=== PATIENT | female | born 1995 | race African-American/Black ===

== ENCOUNTER 2019-08-07 14:27 | Emergency (ER) | payer OTHER ==
[~2019-08-07] VITALS: Ht 160 cm; Wt 103.7 kg
[2019-08-07 15:12] LABS: ABSOLUTE BASOPHILS 0.1 thou/uL (0.0-0.2); ABSOLUTE EOSINOPHILS 0.4 thou/uL (0.0-0.7); ABSOLUTE LYMPHOCYTES 3.4 thou/uL (0.8-5.3); ABSOLUTE MONOCYTES 0.9 thou/uL (0.0-1.2); ABSOLUTE NEUTROPHILS 6.7 thou/uL (1.6-8.1); BASOPHILS 0.8 %; EOSINOPHILS 3.3 %; HEMATOCRIT 32.4 % (37.0-47.0); HEMOGLOBIN 10.2 gm/dL (12.0-15.0); LYMPHOCYTES 29.6 %; MCH 20.9 pg (26.0-34.0); MCHC 31.4 g/dL (28.0-37.0); MCV 66.6 fL (80.0-100.0); MONOCYTES 7.9 %; MPV 9.5 fl. (7.2-11.1); NUCLEATED RBCS 0 /100WBC; PLATELET COUNT* 362 thou/uL (150-400); POLYS 58.4 %; RBC 4.87 mil/uL (4.20-5.00); RDW-CV 16.8 % (10.5-14.5); WBC 11.4 thou/uL (4.0-11.0)
[2019-08-07 15:22] LABS: CALCIUM 8.1 mg/dL (8.5-10.1); CREATININE 0.9 mg/dL (0.6-1.3)
[2019-08-07 15:26] LABS: ALBUMIN 3.4 g/dL (3.4-5.0); TOTAL BILIRUBIN 0.3 mg/dL (<0.1-1.0); TOTAL PROTEIN 7.7 g/dL (6.4-8.2)
[2019-08-07] MEDS ORDERED: IRON325 PO (15:44)
[2019-08-07] MEDS ORDERED: PROVERA10 MG PO (15:44)
[2019-08-07 16:32] LABS: OVALOCYTES 1+; PLATELET ESTIMATE ADEQUATE
[2019-08-07 16:33] LABS: ANISOCYTOSIS 1+; HYPOCHROMASIA 1+; MICROCYTES 3+
[2019-08-07 17:05] VITALS: BP 108/67
--- NOTE | 2019-08-08 10:13 | EKG ---
[place] [address] ELECTROCARDIOGRAM REPORT Name: MARIVEL MADDEN Room: [facility]#: [id number] Admission: 08/07/19 Attend Phys: Discharge: 08/07/19 Date of : [birth year] Report #: [id number] THIS REPORT FOR: //name// [facility] ED Test Date: 2019-08-07 Test Time: 15:08:11 Pat Name: MARIVEL MCFARLAND Department: Room: Gender: Junior Technical Writer: : 1995 Requested By: Jose Mariee Order Number: [id number] MD: Librado Bobby Measurements Intervals [place] Rate: 67 P: 22 PA: 161 QRS: 80 QRSD: 96 T: 6 QT: 461 QTc: 487 Interpretive Statements Sinus rhythm Borderline T wave abnormalities Borderline prolonged QT interval No previous ECG available for comparison Electronically Signed On 08-08-2019 10:12:09 ONLINE MARKETING DIRECTOR by Librado Bobby [email or web address] <ELECTRONICALLY SIGNED> By: Librado Bobby MD, [facility] 08/08/19 1012 D: 01/8 1508 Librado Bobby MD, FACC /EPI
== END 2019-08-07 17:07 | disposition home or self-care (01) ==
LOC: M.ERS 14:27
PROVIDERS: Family Medicine
DX: D64.9 Anemia, unspecified (principal); N93.8 Other specified abnormal uterine and vaginal bleeding; R19.7 Diarrhea, unspecified; J45.909 Unspecified asthma, uncomplicated